=== PATIENT | female | born 1995 | race Caucasian/White ===

== ENCOUNTER 2018-11-04 12:49 | Emergency (ER) | payer OTHER ==
--- NOTE | 2018-11-04 13:09 | ED ---
Psychiatric Complaint - HPI Summary HPI Summary: This patient is a 22 year old female presenting to [facility] with a chief complaint of anxiety since 3 days ago. She states her anxiety has been flaring up and it is uncontrolled. She states a problem with her roommates has driven her to come get evaluated. She states she has had thoughts of hurting herself and has a plan involving overdosing on her adderall pills. She states she has not gotten sleep recently. Pt denies any fever, chills, erythema of eyes, sore throat, CP, SOB, cough, abdominal pain, N/V, dysuria, hematuria, myalgia, edema, rash, or dizziness. - History Of Current Complaint Time Seen by Provider: 11/04/18 13:02 Hx Obtained From: Patient Character: Anxious Has Suicidal: Reports: Thoughts, With A Plan Review of Systems Negative: Fever, Chills Negative: Erythema Negative: Sore Throat Negative: Chest Pain Negative: Shortness Of Breath, Cough Negative: Abdominal Pain, Vomiting, Nausea Negative: dysuria, hematuria Negative: Myalgia, Edema Negative: Rash Neurological: Other - Neg: Dizziness Positive: Anxious All Other Systems Reviewed And Are Negative: Yes Physical Exam - Summary Physical Exam Summary: Constitutional: Well-developed, Well-nourished, Alert. (-) Distressed Skin: Warm, Dry HENT: Normocephalic; Atraumatic Eyes: Conjunctiva normal Neck: Musculoskeletal ROM normal neck. (-) JVD, (-) Stridor, (-) Tracheal deviation Cardio: Rhythm regular, rate normal, Heart sounds normal; Intact distal pulses; The pedal pulses are 2+ and symmetric. Radial pulses are 2+ and symmetric. (-) Murmur Pulmonary/Chest wall: Effort normal. (-) Respiratory distress, (-) Wheezes, (-) Rales Abd: Soft, (-) tenderness, (-) Distension, (-) Guarding, (-) Rebound Musculoskeletal: (-) Edema Lymph: (-) Cervical adenopathy Neuro: Alert, Oriented x3 Psych: Mood and affect Normal Triage Information Reviewed: Yes Vital Signs On Initial Exam: Temp Pulse Resp BP Pulse Ox 97.8 F 84 14 137/72 98 11/04/18 12:55 11/04/18 12:55 11/04/18 12:55 11/04/18 12:55 11/04/18 12:55 Vital Signs Reviewed: Yes Diagnostics - Laboratory Result Diagrams: 11/04/18 13:38 11/04/18 13:38 Lab Statement: Any lab studies that have been ordered have been reviewed, and results considered in the medical decision making process. Course/Dx - Course Course Of Treatment: This patient is a 22 year old female presenting to [facility] with a chief complaint of anxiety since 3 days ago. She was cleared for [facility]. E offered the patient voluntary admission and she declined, so she agreed with a plan where they will discharge her with a Dx of major depressived disorder, and she will follow up with the [facility], per Dr. Elias, Psychiatry. - Differential Dx/Clinical Impression Provider Diagnosis: Major depressive disorder Discharge ED - Sign-Out/Discharge Documenting (check all that apply): Patient Departure - Discharge, per [facility] Patient Received Moderate/Deep Sedation with Procedure: No - Discharge Plan - Attestation Statements Document Initiated by Scribe: Yes Documenting Scribe: Ronni Feldman Provider For Whom Scribe is Documenting (Include Credential): Valentin Benoit MD Scribe Attestation: Ronni Hazel, scribed for Valentin Benoit MD on 11/04/18 at 1428. Status of Scribe Document: Ready
[2018-11-04 13:55] LABS: ABS Eosinophils 0.1 10^3/ul (0-0.6); ABS Lymphocytes 1.9 10^3/ul (1.0-4.8); ABS Monocytes 0.6 10^3/ul (0-0.8); Eosinophil % 1.2 %; Hematocrit 40 % (35-47); Hemoglobin 13.9 g/dL (12.0-16.0); Lymphocyte % 24.6 %; Mean Corpuscular HGB Conc 35 g/dL (31-36); Mean Corpuscular Hemoglobin 31 pg (27-31); Mean Corpuscular Volume 89 fL (80-97); Mean Platelet Volume 7.9 fL (7.4-10.4); Nucleated Red Blood Cells % 0.1; Platelet Count 245 10^3/uL (150-450); Red Blood Count 4.46 10^6 /uL (3.70-4.87); Red Cell Distribution Width 13 % (10-15); White Blood Count 7.6 10^3/uL (3.5-10.8)
[2018-11-04 14:13] LABS: ALT 5 U/L (7-52); AST 15 U/L (13-39); Albumin 4.5 g/dL (3.2-5.2); Albumin/Globulin Ratio 1.6 (1-3); Alkaline Phosphatase 58 U/L (34-104); Anion Gap 7 mmol/L (2-11); BUN/Creatinine Ratio 19.6 (8-20); Blood Urea Nitrogen 11 mg/dL (6-24); CO2 Carbon Dioxide 28 mmol/L (22-32); Calcium 9.3 mg/dL (8.6-10.3); Chloride 105 mmol/L (101-111); Globulin 2.8 g/dL (2-4); Glucose 100 mg/dL (70-100); Potassium 3.7 mmol/L (3.5-5.0); Sodium 140 mmol/L (135-145); Total Protein 7.3 g/dL (6.4-8.9)
[2018-11-04 14:18] LABS: Acetaminophen < 15 mcg/mL; Alcohol < 10 mg/dL (<10); Salicylate < 2.50 mg/dL (<30)
[2018-11-04 14:28] LABS: TSH (Thyroid Stimulating Horm) 1.42 mcIU/mL (0.34-5.60)
[2018-11-04] MEDS ORDERED: Naproxen TAB* 250 MG PO ONE (15:13)
[2018-11-04 15:23] VITALS: BP 117/57
== END 2018-11-04 15:21 | disposition short-term general hospital (02) ==
LOC: ED 12:49
DX: F32.9 Major depressive disorder, single episode, unspecified (principal); F41.9 Anxiety disorder, unspecified
CPT/HCPCS: 36415; 80053; 80320; 80329; 84443; 85025; 99283; A9270-GY; G0480

== ENCOUNTER 2019-01-28 12:07 | Emergency (ER) | payer OTHER ==
[2019-01-28] MEDS ORDERED: Benzonatate CAP* 100 MG PO ONE (13:54)
[2019-01-28] MEDS ORDERED: Albuterol HFA INHALER* 8 gm MDI INH ONE (13:54)
[2019-01-28] MEDS ORDERED: Albuterol/Ipratropium NEB.SOL* Albuterol 2.5 MG/Ipratropium 0.5 MG 3 ML INH ONE (14:37)
[2019-01-28 15:47] VITALS: BP 127/86
--- NOTE | 2019-01-28 17:19 | ED ---
Asthma - HPI Summary HPI Summary: This patient is a 23-year-old female with a history of asthma presenting to the ED with worsening wheezing and cough. She states 3-4 days prior to this, patient had episodes of sweats and chills and achiness as well as cough and congestion. She states this all resolved except for the cough and wheezing remained. She does endorse some shortness of breath. Denies any CP. Denies any subjective fevers. Patient states she is feeling "improved" from the past several days other than her shortness of breath. She states she would typically take albuterol inhaler, however she does not have a prescription for this at this time and does not currently have an albuterol inhaler at home. She takes no inhaled corticosteroids or other oral steroids. She attempted to be seen at [facility], PCP, however was unable to get an appointment so came to the ED. She is otherwise healthy and takes no other medications. - History of Current Complaint Chief Complaint: EDAsthma Stated Complaint: SOB PER PT Time Seen by Provider: 01/28/19 13:42 Hx Obtained From: Patient Onset/Duration: Gradual Onset, Lasting Days Timing: Constant Initial Severity: Moderate Current Severity: Moderate Pain Intensity: 0 Pain Scale Used: 0-10 Numeric Location/Character: Wheezing - and cough - non productive Alleviating Symptoms: Rest Associated Signs and Symptoms: Positive: Negative - Risk Factors Status Asthmaticus Risk Factors: Negative - Allergy/Home Medications Allergies/Adverse Reactions: Allergies Allergy/AdvReac Type Severity Reaction Status Date / Time No Known Allergies Allergy Verified 01/28/19 12:13 Home Medications: Home Medications Dextroamphetamine/Amphetamine [Dextroamp-Amphet ER 25 mg Cap] 1 tab PO DAILY 05/14 [History Confirmed 01/28/19] hydrOXYzine HCl [Hydroxyzine HCl] 10 mg PO DAILY 01/28/19 [History Confirmed 05/14] PMH/Surg Hx/FS Hx/Imm Hx Previously Healthy: Yes Respiratory History: Reports: Hx Asthma Psychiatric History: Denies: Hx Eating Disorder - Immunization History Hx Pertussis Vaccination: No Immunizations Up to Date: Yes Infectious Disease History: No Infectious Disease History: Denies: Traveled Outside the [place] in Last 30 Days - Social History Occupation: Student Lives: Dormitory/Roommates Alcohol Use: Rare Hx Substance Use: Yes Substance Use Type: Reports: Marijuana Smoking Status (MU): Light Every Day Tobacco Smoker Review of Systems Negative: Fever, Chills, Fatigue, Skin Diaphoresis Negative: Palpitations, Chest Pain Positive: Shortness Of Breath, Cough Negative: Abdominal Pain, Vomiting, Diarrhea Genitourinary: Negative Positive: no symptoms reported, see HPI Negative: Arthralgia, Myalgia Psychological: Normal All Other Systems Reviewed And Are Negative: Yes Physical Exam Triage Information Reviewed: Yes Vital Signs On Initial Exam: Initial Vitals Temp Pulse Resp BP Pulse Ox 98 F 81 16 130/75 96 01/28/19 12:09 01/28/19 12:09 01/28/19 12:09 01/28/19 12:09 01/28/19 12:09 Vital Signs Reviewed: Yes Appearance: Positive: Well-Appearing, Well-Nourished Skin: Positive: Warm, Skin Color Reflects Adequate Perfusion Head/Face: Positive: Normal Head/Face Inspection Eyes: Positive: EOMI, SHWETA, Conjunctiva Clear Respiratory/Lung Sounds: Positive: Wheezes. Negative: Decreased Breath Sounds, Rhonchi, Tracheal Deviation, Unable to speak in full sentences, Fatigue Cardiovascular: Positive: RRR, Pulses are Symmetrical in both Upper and Lower Extremities Musculoskeletal: Positive: Strength/ROM Intact Neurological: Positive: Sensory/Motor Intact, Alert, Oriented to Person Place, Time Psychiatric: Positive: Affect/Mood Appropriate Procedures - Sedation Patient Received Moderate/Deep Sedation with Procedure: No Diagnostics - Vital Signs Vital Signs Temp Pulse Resp BP Pulse Ox 01/28/19 15:46 99.1 F 99 16 127/86 95 01/28/19 14:48 94 18 100 01/28/19 12:09 98 F 81 16 130/75 96 - Laboratory Lab Statement: Any lab studies that have been ordered have been reviewed, and results considered in the medical decision making process. Asthma Course/Dx - Course Course Of Treatment: On physical examination, patient has wheezing bilaterally with no rhonchorous sounds. Patient appears to be in no acute distress. No obvious SOB. CXR negative. D/t wheezing, pt given duo neb with good improvement. Given albuterol inhaler and rx for albuterol inhaler. On re- examination, lung sounds improved with decreased wheezing bilaterally. VS stable. Prednisone and tessalon rx. - Diagnoses Provider Diagnoses: Asthma Discharge ED - Sign-Out/Discharge Documenting (check all that apply): Patient Departure - Discharge Plan Condition: Stable Disposition: HOME Prescriptions: Albuterol HFA INHALER* [Ventolin HFA Inhaler*] 1 puff INH Q4H PRN #1 mdi PRN Reason: Shortness Of Breath Benzonatate CAP* [Tessalon CAP*] 100 mg PO TID #21 cap predniSONE TAB* [Deltasone TAB*] 50 mg PO DAILY #4 tab MDD 1 Patient Education Materials: Asthma (ED), Acute Cough (ED) Referrals: [facility] [address] [Primary Care Provider] - 2 Days Additional Instructions: Prednisone once daily 4 days, start this medication in the morning and take only in the a.m. Tessalon up to 3 times daily for cough Also use [id number] Robitussin liquid or other cough medication over-the- counter as well as cough drops for symptom control Albuterol inhaler as needed for any shortness of breath Humidifier in the home may help Hot tea with lemon and honey - Billing Disposition and Condition Condition: STABLE Disposition: Home
== END 2019-01-28 15:45 | disposition home or self-care (01) ==
LOC: ED 12:07
DX: J45.909 Unspecified asthma, uncomplicated (principal); F17.200 Nicotine dependence, unspecified, uncomplicated; Z79.899 Other long term (current) drug therapy
CPT/HCPCS: 71046; 99282; A9270-GY; J7512